=== PATIENT | female | born 1955 | race Caucasian/White ===

== ENCOUNTER 2017-12-25 18:01 | Emergency (ER) | payer OTHER ==
[~2017-12-25] VITALS: Ht 165.1 cm; Wt 72.6 kg
[~2017-12-25 18:01] MED LIST: DARVOCET-N 1001 EACH PO; FLEXERIL PO; MICARDIS HCT 81 EACH PO; NAPROSYN500 MG PO; NORCO 5-325 TA1 EACH PO; [UNRECOGNIZED DRUG - REMARK]
[2017-12-25] MEDS ORDERED: HUMALOG100 UNIT/2 SQ (18:18)
[2017-12-25] MEDS ORDERED: LANTUS100 UNIT/M SUBQ (18:18)
[2017-12-25] MEDS ORDERED: VENTOLIN HFA 1818 GM INH (18:29)
[2017-12-25] MEDS ORDERED: LISINOPRIL10 MG PO (18:29)
[2017-12-25] MEDS ORDERED: SINGULAIR 10 MG10 M1 PO (18:30)
[2017-12-25] MEDS ORDERED: CARVEDILOL12.5 MG PO (18:31)
[2017-12-25] MEDS ORDERED: COLACE100 MG PO (18:31)
[2017-12-25] MEDS ORDERED: ALENDRONATE SODI5 MG PO (18:31)
[2017-12-25] MEDS ORDERED: RANITIDINE 150150 M1 PO (18:32)
[2017-12-25] MEDS ORDERED: PRAVACHOL20 MG PO (18:32)
[2017-12-25] MEDS ORDERED: NEXIUM40 MG PO (18:32)
[2017-12-25] MEDS ORDERED: GABAPENTIN 100100 MG PO (18:32)
[2017-12-25] MEDS ORDERED: CONSTULOSE10 GM/152 (18:33)
[2017-12-25] MEDS ORDERED: SYMBICORT160 MCG/4. INH (18:33)
[2017-12-25] MEDS ORDERED: SPIRIVA INH (18:33)
[2017-12-25] MEDS ORDERED: ZYRTEC10 M5 PO (18:53)
[2017-12-25] MEDS ORDERED: KEFLEX500 M1 PO (18:53)
[2017-12-25] MEDS ORDERED: IBUPROFEN 800800 M1 PO (18:53)
[2017-12-25 19:12] VITALS: BP 127/63
== END 2017-12-25 19:14 | disposition home or self-care (01) ==
LOC: M.ERS 18:01
DX: K04.7 Periapical abscess without sinus (principal); I10 Essential (primary) hypertension; E78.00 Pure hypercholesterolemia, unspecified; F17.210 Nicotine dependence, cigarettes, uncomplicated; Z88.0 Allergy status to penicillin; Z88.1 Allergy status to other antibiotic agents; Z90.710 Acquired absence of both cervix and uterus; Z90.49 Acquired absence of other specified parts of digestive tract